=== PATIENT | female | born 1970 | race African-American/Black ===

== ENCOUNTER → 2018-11-24 | Outpatient (CLI) | payer OTHER ==
[~2018-11-24] MED LIST: ADVAIRDISKUS; ALBUTEROL2.5 MG/31 IH; ARTHROTEC EC 51 EACH PO; AZITHROMYCIN 2250 MG PO; CARISOPRODOL 3350 MG PO; DARVOCET-N 1001 EACH PO; FLEXERIL PO; GLUCOPHAGE500 MG PO; GLUCOSAMINE HC500 MG PO; HUMALOG100 UNIT/1; HUMULIN N100 UNIT/1; HYDROXYZINE HCL25 M1 GT; MEDROLDOSEPACK PO; METFORMIN HCL500 MG PO; NABUMETONE 500500 M1 PO; NORCO 7.5-3251 EACH PO; PERCOCET 5-3251 EACH PO; PREDNISONE 2.52.5 M1 PO; PREDNISONE50 MG PO; PRENATAL; PROVENTIL; TESSALON PERLE100 MG PO; ZANAFLEX4 M1 PO; ZANAFLEX4 MG PO; ZANTAC 150MG T150 M1 PO; ZPAK PO
== END ==
LOC: RAD 09:18
DX: J40 Bronchitis, not specified as acute or chronic (principal)

== ENCOUNTER → 2019-06-08 | Outpatient (CLI) | payer OTHER | LOC: ULTRA 10:23 | DX: M79.89 Other specified soft tissue disorders (principal); M79.604 Pain in right leg ==

== ENCOUNTER → 2020-02-29 | Outpatient (CLI) | payer OTHER | LOC: SJCVCIMAG 09:09 | PROVIDERS: ATTEND Internal Medicine | DX: R00.0 Tachycardia, unspecified (principal); E66.01 Morbid (severe) obesity due to excess calories ==

== ENCOUNTER 2021-02-06 23:16 | Emergency (ER) | payer OTHER ==
[~2021-02-06] VITALS: Ht 172.7 cm; Wt 148.3 kg
[2021-02-06] MEDS ORDERED: GLYBURIDE 5 MG T5 M1 PO (23:35)
[2021-02-06] MEDS ORDERED: VICTOZA0.6 MG/0.1 SUBQ (23:36)
[2021-02-06] MEDS ORDERED: VITAMIN D21250 MCG PO (23:36)
[2021-02-07] MEDS ORDERED: VENTOLIN HFA INH8 GM INH (01:02)
[2021-02-07] MEDS ORDERED: FLOVENT HFA 4444 MCG INH (01:02)
[2021-02-07] MEDS ORDERED: PREDNISONE 20 M20 MG PO (01:02)
[2021-02-07 01:36] VITALS: BP 142/67
== END 2021-02-07 01:38 | disposition home or self-care (01) ==
LOC: ER 23:16
DX: U07.1 COVID-19 (principal); J45.909 Unspecified asthma, uncomplicated; Z88.5 Allergy status to narcotic agent; Z88.1 Allergy status to other antibiotic agents; Z88.0 Allergy status to penicillin; Z91.040 Latex allergy status; Z88.6 Allergy status to analgesic agent; Z79.899 Other long term (current) drug therapy; Z94.9 Transplanted organ and tissue status, unspecified; Z90.710 Acquired absence of both cervix and uterus

== ENCOUNTER 2021-02-09 15:02 | Inpatient (IN) | payer OTHER ==
[~2021-02-09] VITALS: Ht 175.3 cm; Wt 143.0 kg
[~2021-02-09 15:02] MED LIST changes: +FLOVENT HFA 4444 MCG INH; +GLYBURIDE 5 MG T5 M1 PO; +PREDNISONE 20 M20 MG PO; +VENTOLIN HFA INH8 GM INH; +VICTOZA0.6 MG/0.1 SUBQ; +VITAMIN D21250 MCG PO
[2021-02-09 15:15] VITALS: BP 114/84
[2021-02-09 17:18] LABS: BE(vivo) -3.7 mmol/L (-2 to +3); PCO2 VENOUS 25.3 mmHg (41.0-51.0); PO2 VENOUS 86.4 mmHg (35.0-45.0)
--- NOTE | 2021-02-09 17:28 | NUR ---
CONTACTED LAB TO ASSIST WITH OBTAINING BLOOD.
[2021-02-09 17:36] LABS: CALCIUM 8.7 mg/dL (8.5-10.1); CREATININE 0.9 mg/dL (0.6-1.0); POTASSIUM 4.5 mmol/L (3.5-5.1)
[2021-02-09 18:42] LABS: ABSOLUTE NEUTROPHILS 7.1 thou/uL (1.4-8.2); BASOPHILS 0.3 % (0.0-2.0); HEMATOCRIT 40.7 % (37.0-47.0); HEMOGLOBIN 13.6 gm/dL (12.0-15.0); LYMPHOCYTES 7.3 % (24.0-44.0); MCH 28.3 pg (26.0-34.0); MCHC 33.4 g/dL (28.0-37.0); MCV 84.6 fL (80.0-100.0); MONOCYTES 2.1 % (1.0-8.0); PLATELET COUNT 270 thou/uL (150-400); POLYS 90.3 % (36.0-66.0); RDW 14.4 % (10.5-14.5); WBC 7.8 thou/uL (4.0-11.0)
--- NOTE | 2021-02-09 18:47 | NUR ---
DISCUSSED RISKS OF DVT AND INFECTION WITH THE PATIENT WELL BENIFITS OF MIDLINE PLACEMENT. SHE VERBALIZED UNDERSTANDING AND QUESTIONS ANSWERED. A #4F POWER INJECTABLE MIDLINE WAS PLACED AFTER 2 ATTEMPTS AT PERIPHERAL ACCESS AND LAB DRAWS WERE UNSUCCESSFUL. THE LEFT BASILIC WAS WIDLEY PATENT. THE 20CM LINE ADVANCED WITHOUT DIFFICULTY. THE LINE WAS SECURED AND RELEASED FOR USE
[2021-02-09] MEDS ORDERED: TYLENOL PO (19:23)
[2021-02-09 20:04] VITALS: BP 140/74
[2021-02-10 04:08] VITALS: BP 108/62
[2021-02-10 06:27] LABS: HEMATOCRIT 39.2 % (37.0-47.0); HEMOGLOBIN 13.1 gm/dL (12.0-15.0); MCH 28.3 pg (26.0-34.0); MCHC 33.3 g/dL (28.0-37.0); RBC 4.62 mil/uL (4.20-5.00); RDW 14.6 % (10.5-14.5); WBC 5.6 thou/uL (4.0-11.0)
[2021-02-10 06:48] LABS: ALBUMIN 2.8 g/dL (3.4-5.0); ANION GAP 10 mmol/L (7-16); BUN 11 mg/dL (7-18); CALCIUM 8.2 mg/dL (8.5-10.1); CHLORIDE 104 mmol/L (98-107); CO2 25 mmol/L (21-32); CREATININE 0.9 mg/dL (0.6-1.0); DIRECT BILIRUBIN < 0.1 mg/dL (<0.1-0.2); GLUCOSE 165 mg/dL (74-106); PHOSPHORUS 3.3 mg/dL (2.6-4.7); POTASSIUM 4.5 mmol/L (3.5-5.1); SGOT 21 U/L (15-37); SGPT 24 U/L (14-59); SODIUM 139 mmol/L (136-145); TOTAL BILIRUBIN 0.3 mg/dL (0.2-1.0); TOTAL PROTEIN 6.9 g/dL (6.4-8.2)
[2021-02-10 08:36] VITALS: BP 139/84
--- NOTE | 2021-02-10 11:18 | NUR ---
Nutrition: RD received consult stating diabetes. Pt admitted with SOA, recent COVID dx. PMH: PNA, bronchitis, asthma, DM2. BMI 65. Bedscale weight 446#, pt reported weight 327#. Follow trends, however pt with class 3 extreme obesity. Spoke with pt over phone and she did report a 15# weight loss since having cholecystectomy. Appetite is good. C/O no taste but able to smell. Assisted with lunch order and explained alternative menu ordering for future. BG 140, A1C pending. Pt reports pork allergy and is listed in diet order. No education needs/desires at present. Place as low nutrition risk.
--- NOTE | 2021-02-10 12:53 | NUR ---
INITIAL ASSESSMENT: SW reviewed chart and spoke with nursing and attending physician. Pt was admitted from home due to COVID. Pt placed in Enhanced Isolation. Pt had positive test on 02/07/2021. Pt is afebrile and on 2L of O2. Pt is on IV abx, IV steroids and COVID meds. Pt with hx DM and asthma. Pt has not received a COVID vaccine. SW spoke with pt via phone. Introduced role of SW. Pt is alert/orientated x 4. Pt reports she lives at home with her 15 yr old son. Pt's son is in quarantine and is being taken care of by his older siblings. Prior to admission, pt was independent with ADLs. Pt has become weak since being diagnosed with COVID and has been unable to ambulate without having to stop and rest. Pt works at a local nursing facility. Pt has an inhaler to use as needed. No hx of services. Pt's PCP is Dr. Jackson Carney at [facility]. Pt used to see Dr. Anabel Glover and Dr. Varghese Harman at [facility]. However they do not accept pt's current insurance. PT/OT ordered to evaluate pt for discharge needs. Plan is for pt to discharge home when medically stable. SW is following to assist as needed with discharge planning.
--- NOTE | 2021-02-10 15:08 | EKG ---
[place] [address] [facility] [place] [address] ELECTROCARDIOGRAM REPORT Name: ALAN TRIMBLE Room #: 350-P ADM IN M.R.#: [id number] Admission: 02/09/21 Attend Phys: Chary Bray Discharge: Date of : 74 Report #: [id number] [facility] ED Test Date: 2021-02-09 Test Time: 16:42:13 Pat Name: ALAN TRIMBLE Department: Room: 350 Gender: F Cross Roller: RYNE : 1970 Requested By: Mercedes Duke Order Number: [id number] MD: Ian Bishop Measurements Intervals [place] Rate: 85 P: 47 IN: 130 QRS: -17 QRSD: 86 T: 30 QT: 342 QTc: 407 Interpretive Statements Sinus rhythm Borderline left axis deviation Compared to ECG 08/05/2013 03:02:57 No significant changes Electronically Signed On 02-10-2021 15:08:14 CDT by Ian Bishop [email or web address] <ELECTRONICALLY SIGNED> By: Ian Bishop MD, [facility] 02/10/21 1508 1642 1642 Ian Bishop MD, FACC /EPI
[2021-02-10 15:11] VITALS: BP 120/67
--- NOTE | 2021-02-10 16:07 | NUR ---
RN ASSUMED PT'S CARE AT 0700AM, PT IS A&OX4, PT IS ON O2 2L/MIN/NC, PT'S VS AND O2SAT ARE STABLE, BUT PT STILL HAS COUGHING AND SOB WITH ACTIVITIES, PT IS CONTINUING IV ABX AND TREAT COVID MEDICATIONS, PT GETS UP TO BSC WITHOUT ASSIST, PT DENIES PAIN AT THIS TIME.
[2021-02-10 19:30] VITALS: BP 160/91
[2021-02-11 00:06] LABS: GLYCOHEMOGLOBIN (HGB A1C) 6.5 % (4.8-5.6)
[2021-02-11 03:44] VITALS: BP 133/87
[2021-02-11 04:21] LABS: ABSOLUTE NEUTROPHILS 3.5 thou/uL (1.4-8.2); BASOPHILS 0.3 % (0.0-2.0); HEMATOCRIT 39.6 % (37.0-47.0); HEMOGLOBIN 13.3 gm/dL (12.0-15.0); LYMPHOCYTES 27.8 % (24.0-44.0); MCH 28.2 pg (26.0-34.0); MCHC 33.5 g/dL (28.0-37.0); PLATELET COUNT 281 thou/uL (150-400); POLYS 66.9 % (36.0-66.0); RBC 4.72 mil/uL (4.20-5.00); RDW 14.6 % (10.5-14.5); WBC 5.2 thou/uL (4.0-11.0)
[2021-02-11 05:09] LABS: INR 0.9; PROTIME 9.9 Seconds (10.5-12.1)
[2021-02-11 05:41] LABS: ALBUMIN 2.8 g/dL (3.4-5.0); CALCIUM 8.5 mg/dL (8.5-10.1); CREATININE 0.9 mg/dL (0.6-1.0); POTASSIUM 4.2 mmol/L (3.5-5.1); TOTAL BILIRUBIN 0.2 mg/dL (0.2-1.0); TOTAL PROTEIN 7.1 g/dL (6.4-8.2)
[2021-02-11 05:44] LABS: DIRECT BILIRUBIN < 0.1 mg/dL (<0.1-0.2); PHOSPHORUS 3.1 mg/dL (2.5-4.9)
--- NOTE | 2021-02-11 06:45 | NUR ---
VSS OVERNIGHT. MIDLINE IN PLACE AND DRAWS FOR LABS. PT HAVING COMPLAINTS OF UPPER GASTRIC PAIN. GOT ORDER FOR GAS X AND AWAITING FOR THE PHARMACY TO VERIFY. COLLECTED MRSA SWAB AND URINE SAMPLE FOR ID. SPUTUM STILL NEEDS TO BE COLLECTED. 02 SATURATION IN 90'S WITH 2L NASAL CANNULA.
[2021-02-11 07:44] VITALS: BP 110/71
[2021-02-11] MEDS ORDERED: ASPIRIN EC325 M1 PO (10:55)
[2021-02-11] MEDS ORDERED: CEFUROXIME500 MG PO (10:55)
--- NOTE | 2021-02-11 12:52 | NUR ---
SHREYAS reviewed chart and spoke with nursing and attending physician. Pt remains in Enhanced Isolation due to COVID. Pt febrile earlier today. Pt is on 2L of O2. Pt had rest/exercise oximetry completed earlier today. Pt does requiring 2L of O2 with activity. Pt remains on IV abx and IV steorids. Pt is still receiving COVID meds. Discharge summary completed by attending physician. SHREYAS spoke with pt via phone to discuss discharge plan. Pt states that she was told she would remain in the hospital for the duration of COVID meds. IV lasix ordered today. SW discussed possible need for home O2. Pt verbalized understanding. SW provided options for DME companies. No preference voiced. SHREYAS confirmed pt's home address and phone number. SHREYAS faxed home O2 referral to [facility] and notified [facility] liaison of new referral. Pt will have a repeat rest/exercise oximetry prior to discharge. SHREYAS is following to assist as needed with discharge planning.
[2021-02-11 14:14] LABS: CREATININE 1.1 mg/dL (0.6-1.0)
[2021-02-11 15:40] VITALS: BP 134/78
--- NOTE | 2021-02-11 16:24 | NUR ---
RN ASSUMED PT'S CARE AT 0700AM, PT IS A&OX4, PT IS ON O2 2L/MIN/NC, PT'S VS ARE STABLE BY THIS TIME, BUT PT STILL HAS SOB WITH ACTIVITIES, PT IS CONTINUING IV ABX AND TREAT COVID MEDICATIONS, PT GETS UP TO BSC AND CHAIR WITHOUT ASSIST, PT DENIES PAIN AND N/V BY THIS TIME.
[2021-02-11 20:13] VITALS: BP 152/93
[2021-02-11 21:18] LABS: ABSOLUTE NEUTROPHILS 4.4 thou/uL (1.4-8.2); BASOPHILS 0.5 % (0.0-2.0); HEMATOCRIT 44.2 % (37.0-47.0); HEMOGLOBIN 14.3 gm/dL (12.0-15.0); LYMPHOCYTES 19.8 % (24.0-44.0); MCH 27.3 pg (26.0-34.0); MCHC 32.4 g/dL (28.0-37.0); MCV 84.1 fL (80.0-100.0); MONOCYTES 5.8 % (1.0-8.0); PLATELET COUNT 323 thou/uL (150-400); POLYS 73.9 % (36.0-66.0); RBC 5.26 mil/uL (4.20-5.00); RDW 14.6 % (10.5-14.5)
[2021-02-12 03:37] VITALS: BP 95/63
--- NOTE | 2021-02-12 05:15 | NUR ---
PT MAKING POOR PROGRESS TOWARDS GOAL. ON O2 AT 2L PER NC. UPON INTIAL ASSESSMENT PT REPORTED THAT SHE HAD A COUGHING EPISODE AND THAT SHE FELT SHORT OF BREATH IMMEDIATELY FOLLOWING IT. PT 02 SAT FELL TO DASIA 80'S BUT RECOVERED TO 93% AFTER A FEW MINUTES.
[2021-02-12 08:46] LABS: ALBUMIN 2.8 g/dL (3.4-5.0); ANION GAP 7 mmol/L (7-16); BUN 16 mg/dL (7-18); CHLORIDE 103 mmol/L (98-107); CO2 29 mmol/L (21-32); DIRECT BILIRUBIN < 0.1 mg/dL (<0.1-0.2); GLUCOSE 110 mg/dL (74-106); PHOSPHORUS 3.9 mg/dL (2.6-4.7); POTASSIUM 3.9 mmol/L (3.5-5.1); SGOT 26 U/L (15-37); SGPT 31 U/L (14-59); SODIUM 139 mmol/L (136-145); TOTAL BILIRUBIN 0.2 mg/dL (0.2-1.0); TOTAL PROTEIN 7.3 g/dL (6.4-8.2)
[2021-02-12 09:09] LABS: HIV ANTIBODY Non Reactive (Non Reactive)
--- NOTE | 2021-02-12 12:19 | NUR ---
SW reviewed chart and spoke with nursing and attending physician. Pt remains in Enhanced Isolation due to COVID. Pt is afebrile and requiring 5L of O2. Pt is on IV abx, IV steroids and IV lasix. Remdesivir has been started. PT/OT is following pt for recommendations for discharge needs. Pt will need a repeat rest/exercise oximetry prior to discharge to determine home O2 needs. [facility] has delivered a portable O2 tank to the hospital if needed. SHREYAS is following to assist as needed with discharge planning.
[2021-02-12 16:40] VITALS: BP 137/86
[2021-02-12 20:19] VITALS: BP 119/69
[2021-02-13 03:58] VITALS: BP 100/66
--- NOTE | 2021-02-13 06:03 | NUR ---
PT ON O2 AT 4L PER NC OVERNIGHT. PT REPORTEDLY ON 5L THROUGHOUT THE DAY TIME. PT STATED SHE WAS NEEDING 5L OF OXYGEN. O2 SAT WITH INITIAL VITAL SIGNS WAS 94%. O2 KEPT AT 4L. PT REPORTING FREQUENT COUGH AND TROUBLE BREATHING SURROUNDING THOSE COUGHING EVENTS. SUPPORT GIVEN, ENCOURAGED TO TAKE SLOW DEEP BREATH THROUGH THE NOSE DURING THOSE TIMES. ENCOURAGED TO CALL IF THOSE WITH ANY STRUGGLE TO RECOVER FROM THOSE SOA/COUGHING EVENTS.
[2021-02-13 07:20] VITALS: BP 113/73
[2021-02-13 07:46] LABS: ABSOLUTE NEUTROPHILS 2.7 thou/uL (1.4-8.2); BASOPHILS 1.1 % (0.0-2.0); EOSINOPHILS 0.1 % (0.0-3.0); HEMATOCRIT 44.6 % (37.0-47.0); HEMOGLOBIN 14.7 gm/dL (12.0-15.0); LYMPHOCYTES 41.7 % (24.0-44.0); MCH 27.6 pg (26.0-34.0); MCV 83.7 fL (80.0-100.0); MONOCYTES 6.4 % (1.0-8.0); PLATELET COUNT 310 thou/uL (150-400); POLYS 50.7 % (36.0-66.0); RBC 5.33 mil/uL (4.20-5.00); RDW 14.3 % (10.5-14.5); WBC 5.3 thou/uL (4.0-11.0)
[2021-02-13 08:02] LABS: ANION GAP 12 mmol/L (7-16); BUN 17 mg/dL (7-18); CALCIUM 9.2 mg/dL (8.5-10.1); CHLORIDE 103 mmol/L (98-107); CO2 28 mmol/L (21-32); DIRECT BILIRUBIN < 0.1 mg/dL (<0.1-0.2); GLUCOSE 131 mg/dL (74-106); PHOSPHORUS 4.3 mg/dL (2.6-4.7); POTASSIUM 3.9 mmol/L (3.5-5.1); SGOT 30 U/L (15-37); SGPT 40 U/L (14-59); SODIUM 143 mmol/L (136-145); TOTAL BILIRUBIN 0.3 mg/dL (0.2-1.0); TOTAL PROTEIN 7.9 g/dL (6.4-8.2)
[2021-02-13 13:52] LABS: T-SPOT.TB Negative
--- NOTE | 2021-02-13 14:13 | NUR ---
SHREYAS reviewed chart and spoke with nursing and attending physician. Pt remains in Enhanced Isolation due to COVID. Pt is afebrile and requiring 5L of O2. Pt is on IV steroids, IV lasix and Remdesivir. SHREYAS spoke with pt via phone. Pt states she feels very fatigued after working with therapy and it tooks a while for her to catch her breath. SHREYAS discussed possible need for home O2 when ready for discharge. Pt verbalized understanding. Do is following to provide home O2. SHREYAS is following to assist as needed with discharge planning.
[2021-02-13 15:57] VITALS: BP 133/72
--- NOTE | 2021-02-13 15:58 | NUR ---
RN ASSUMED PT'S CARE AT 0700AM, PT IS A&OX4, PT IS ON O2 4-5L/MIN/NC, PT'S O2SAT STAYS AT 92-95%, PT STILL HAS COUGHING AND SOB WITH ACTIVITIES, PT IS CONTINUING PO ABX AND TREAT COVID MEDICATIONS, PT GETS UP CHAIR WITHOUT ASSISIT , PT DENIES PAIN AND N/V BY THIS TIME.
[2021-02-13 19:15] VITALS: BP 153/96
[2021-02-14 04:30] VITALS: BP 151/90
--- NOTE | 2021-02-14 04:48 | NUR ---
Patient making some progress towards outcome goals. Oxygen saturation 99-100% on 5L at rest. Desaturates to low 90's with activity and coughing spells. PRN cough medication given with some relief. Rib cage pain from coughing treated with Tylenol with some relief. Up to BSC independently, gait steady.
[2021-02-14 05:51] LABS: ALBUMIN 2.9 g/dL (3.4-5.0); CREATININE 0.9 mg/dL (0.6-1.0); PHOSPHORUS 3.7 mg/dL (2.5-4.9); POTASSIUM 3.9 mmol/L (3.5-5.1)
[2021-02-14 07:11] VITALS: BP 114/74
--- NOTE | 2021-02-14 09:07 | NUR ---
Nutrition followup: pt seen for early followup. Continues on [facility], COVID + with O2 need. Continues to eat well, 80-100% of meals. BG 118-343. A1C 6.5 Glyburide, SSI, steroid. Carb controlled diet. BM 02/13. Last bedscale weight error. Pt reports UBW 327#. Pt voiced no nutrition needs at present. Low risk.
--- NOTE | 2021-02-14 13:28 | NUR ---
SHREYAS reviewed chart and spoke with nursing and attending physician. Pt remains in Enhanced Isolation due to COVID. Pt is on 4L of O2 and remasin on IV steroids and IV abx. Pt has completed courses of COVID meds. Pt may be ready to discharge home over the holiday weekend. Rest/exercise oximetry completed earlier today. Pt required 4L with activity. Pt will need a repeat rest/exercise oximetry ordered prior to discharge. Test results and script for O2 will need to be faxed to [facility] when available. SHREYAS updated [facility] liaison. Portable O2 tank has been delivered to the hospital for pt to take him, if needed. SHREYAS spoke with pt via phone to discuss discharge plan. Pt is aware of possible discharge if her O2 requirements go down. SHREYAS explained process for setting up home O2. Pt verbalized understanding. Contact info for Do has been placed in pt's discharge summary. SHREYAS is following and is available to assist as needed with discharge planning. DO--
[2021-02-14 15:15] VITALS: BP 133/80
[2021-02-14 19:45] VITALS: BP 148/95
--- NOTE | 2021-02-14 20:02 | NUR ---
RN ASSUMED PT'S CARE AT 0700AM-1900PM, PT IS A&OX4, PT IS O2 3-4L/MIN/NC, PT IS CONTINUING TREAT COVID MEDICATIONS, PT STILL HAS COUGHING AND SOB WITH ACTIVITIES,PT'S VS ARE STABLE AT DAY SHIFT.
[2021-02-15 04:00] VITALS: BP 108/59
[2021-02-15 06:47] LABS: ALBUMIN 2.8 g/dL (3.4-5.0); ANION GAP 10 mmol/L (7-16); BUN 19 mg/dL (7-18); CALCIUM 9.7 mg/dL (8.5-10.1); CHLORIDE 102 mmol/L (98-107); CO2 28 mmol/L (21-32); DIRECT BILIRUBIN < 0.1 mg/dL (<0.1-0.2); GLUCOSE 118 mg/dL (74-106); PHOSPHORUS 4.2 mg/dL (2.6-4.7); POTASSIUM 3.8 mmol/L (3.5-5.1); SGOT 19 U/L (15-37); SGPT 34 U/L (14-59); SODIUM 140 mmol/L (136-145); TOTAL BILIRUBIN 0.3 mg/dL (0.2-1.0); TOTAL PROTEIN 7.2 g/dL (6.4-8.2)
[2021-02-15 07:11] VITALS: BP 117/68
--- NOTE | 2021-02-15 07:30 | NUR ---
PT MAKING SLOW PROGRESS TOWARDS GOALS. LUNGS DIMISHED THROUGHOUT. O2 AT 3L PER NC THROUGHOUT THE DAY TIME AND OVERNIGHT.
[2021-02-15 15:08] VITALS: BP 129/77
[2021-02-15 19:45] VITALS: BP 146/69
[2021-02-16 04:44] VITALS: BP 102/58
[2021-02-16 05:51] LABS: ANION GAP 10 mmol/L (7-16); BUN 21 mg/dL (7-18); CALCIUM 9.9 mg/dL (8.5-10.1); CHLORIDE 99 mmol/L (98-107); CO2 29 mmol/L (21-32); CREATININE 0.9 mg/dL (0.6-1.0); DIRECT BILIRUBIN < 0.1 mg/dL (<0.1-0.2); GLUCOSE 184 mg/dL (74-106); PHOSPHORUS 4.4 mg/dL (2.6-4.7); POTASSIUM 3.6 mmol/L (3.5-5.1); SGOT 15 U/L (15-37); SGPT 32 U/L (14-59); SODIUM 138 mmol/L (136-145); TOTAL BILIRUBIN 0.3 mg/dL (0.2-1.0); TOTAL PROTEIN 7.7 g/dL (6.4-8.2)
[2021-02-16 07:00] VITALS: BP 119/75
[2021-02-16 15:44] VITALS: BP 110/74
[2021-02-16 19:30] VITALS: BP 131/96
[2021-02-17 03:30] VITALS: BP 107/61
--- NOTE | 2021-02-17 05:41 | NUR ---
Patient making slow progress towards outcome goals. Continues to require 4L oxygen/NC. Still with coughing spells. Up to BSC without difficulty. Gait steady. Up adlib without difficulty. Vital signs and rhythm stable. Diuresing from Lasix.
[2021-02-17 06:49] LABS: ABSOLUTE NEUTROPHILS 11.6 thou/uL (1.4-8.2); BASOPHILS 0.2 % (0.0-2.0); HEMOGLOBIN 14.1 gm/dL (12.0-15.0); LYMPHOCYTES 11.2 % (24.0-44.0); MCH 28.3 pg (26.0-34.0); MCHC 33.6 g/dL (28.0-37.0); MCV 84.3 fL (80.0-100.0); MONOCYTES 3.2 % (1.0-8.0); PLATELET COUNT 417 thou/uL (150-400); POLYS 85.4 % (36.0-66.0); RBC 4.98 mil/uL (4.20-5.00); RDW 13.9 % (10.5-14.5); WBC 13.5 thou/uL (4.0-11.0)
[2021-02-17 07:00] LABS: ANION GAP 10 mmol/L (7-16); BUN 24 mg/dL (7-18); CALCIUM 9.6 mg/dL (8.5-10.1); CHLORIDE 97 mmol/L (98-107); CO2 28 mmol/L (21-32); CREATININE 1.1 mg/dL (0.6-1.0); DIRECT BILIRUBIN < 0.1 mg/dL (<0.1-0.2); GLUCOSE 280 mg/dL (74-106); PHOSPHORUS 4.1 mg/dL (2.5-4.9); POTASSIUM 3.8 mmol/L (3.5-5.1); SGOT 12 U/L (15-37); SGPT 29 U/L (30-65); SODIUM 135 mmol/L (136-145); TOTAL BILIRUBIN 0.4 mg/dL (0.2-1.0); TOTAL PROTEIN 7.8 g/dL (6.4-8.2)
[2021-02-17 07:01] LABS: D-DIMER 0.22 ug/mLFEU (0.19-0.50); INR 0.96; PROTIME 10.5 Seconds (10.5-12.1)
[2021-02-17 07:13] VITALS: BP 121/70
[2021-02-17 15:06] VITALS: BP 116/80
--- NOTE | 2021-02-17 18:02 | NUR ---
ASSUMED PATIENT CARE AT 0700. A/O X4. TITRATED TO 2L/NC. SOB WITH EXERTION. SLOWLY TOWARDS POC GOALS.
[2021-02-17 20:23] VITALS: BP 131/72
[2021-02-18 03:40] VITALS: BP 118/73
--- NOTE | 2021-02-18 04:01 | NUR ---
denies chest pain tonight. resting quietly. continues on a fluids restriction/ she took benedryl at bedtime and has been resting since.
[2021-02-18 06:27] LABS: ANION GAP 10 mmol/L (7-16); BUN 27 mg/dL (7-18); CALCIUM 9.5 mg/dL (8.5-10.1); CHLORIDE 97 mmol/L (98-107); CO2 27 mmol/L (21-32); CREATININE 1.1 mg/dL (0.6-1.0); DIRECT BILIRUBIN < 0.1 mg/dL (<0.1-0.2); GLUCOSE 321 mg/dL (74-106); PHOSPHORUS 3.5 mg/dL (2.5-4.9); POTASSIUM 4.2 mmol/L (3.5-5.1); SGOT 11 U/L (15-37); SGPT 26 U/L (30-65); SODIUM 134 mmol/L (136-145); TOTAL BILIRUBIN 0.4 mg/dL (0.2-1.0); TOTAL PROTEIN 7.5 g/dL (6.4-8.2)
[2021-02-18 07:21] VITALS: BP 119/79
[2021-02-18 16:10] VITALS: BP 134/73
--- NOTE | 2021-02-18 16:28 | NUR ---
SHREYAS reviewed chart and spoke with nursing and attending physician. Pt remains in Enhanced Isolation due to COVID. Pt is afebrile and on 2L of O2. Pt is on IV steroids and IV lasix. Chest CT ordered today to r/o PE. SHREYAS spoke with pt via phone to provide update. Pt is aware that she will most likely need home O2 when discharged. Will need a rest/exercise oximetry completed to determine home O2 needs. SHREYAS updated [facility] liaison. Portable O2 tank has been delivered to the hospital. SHREYAS is following to assist as needed with discharge planning.
--- NOTE | 2021-02-18 19:44 | NUR ---
ASSUMED PATIENT CARE AT 0700. A/O X4. UP AD EMILY. SOB WITH EXERTION. SLOWLY TOWARDS POC GOALS.
[2021-02-18 20:10] VITALS: BP 152/98
[2021-02-19 03:53] VITALS: BP 124/80
--- NOTE | 2021-02-19 04:38 | NUR ---
PT MAKING SLOW PROGRESS TOWARDS GOALS. ON O2 AT 2L PER NC OVERNIGHT. LUNGS DIMINISHED THROUGHOUT.
[2021-02-19 05:44] LABS: ALBUMIN 2.9 g/dL (3.4-5.0); CALCIUM 9.2 mg/dL (8.5-10.1); PHOSPHORUS 3.4 mg/dL (2.5-4.9); POTASSIUM 4.1 mmol/L (3.5-5.1)
[2021-02-19 07:22] VITALS: BP 136/84
--- NOTE | 2021-02-19 14:35 | NUR ---
SHREYAS reviewed chart and spoke with nursing and attending physician. Pt remains in Enhanced Isolation due to COVID. Pt is afebrile and on 2L of O2. Pt is on IV steroids and IV lasix. SHREYAS spoke with pt via phone to provide update. Pt states that she was told by attending physician that discharge home is anticipated for Wednesday. Pt reports that she will need transportation home when discharged. Her two sons are at home with COVID and in isolation. Pt is aware that she will most likely need home O2 when discharged. Will need a rest/exercise oximetry completed to determine home O2 needs. SHREYAS updated [facility] liaison. Portable O2 tank has been delivered to the hospital. SW is following to assist as needed with discharge planning.
[2021-02-19 16:00] VITALS: BP 145/68
--- NOTE | 2021-02-19 16:20 | NUR ---
PT IS ALERT AND ORIENTED X4. PT STATED SHE IS DOING BETTER TODAY AND WANTS TO TRY TO KEEP THE COMMODE ON THE OTHER SIDE OF THE BED WHEN SHE GETS UP IN THE CHAIR TO BUILD STRENGTH FOR WHEN SHE GOES HOME. PT HAD BEEN IN SR AND TOLERATING 2L NC. NO COMPLAINTS OF PAIN AT THIS TIME.
[2021-02-19 19:33] VITALS: BP 149/71
[2021-02-20 04:40] VITALS: BP 120/65
--- NOTE | 2021-02-20 05:40 | NUR ---
PT MAKING SLOW PROGRESS TOWARDS GOALS. ON O2 AT 2L PER NC. LUNGS DIMINISHED THROUGHOUT.
[2021-02-20 08:07] VITALS: BP 131/84
--- NOTE | 2021-02-20 13:49 | NUR ---
SHREYAS reviewed chart and spoke with nursing and attending physician. Pt remains in Enhanced Isolation due to COVID. Pt is afebrile and currently on room air. Pt is on IV lasix and IV steroids. Rest/exercise oximetry completed earlier today. At this time, pt does not require O2. Discharge home is anticipated for tomorrow. SHREYAS updated [facility] liaison. Portable O2 tank at the hospital if needed. SHREYAS placed call to pt's room. No answer. Plan is for pt to discharge home when medically stable. Pt will need transportation home. SHREYAS is following to assist as needed with discharge planning.
[2021-02-20 14:59] VITALS: BP 147/78
[2021-02-20 19:15] VITALS: BP 123/67
--- NOTE | 2021-02-20 23:07 | NUR ---
PT ALERT AND ORIENTED X4. VSS AFEBRILE. SAT 94% ON RA. BS CLEAR BUT DIMINISHED BILATERALLY. MEDICATED FOR COUGH AND SORETHROAT PAIN. EYE DROPS GIVEN. BENADRYL GIVEN PER PT REQUEST FOR SLEEP. BED DOWN. CALL LIGHT IN REACH. NO S/S DISTRESS PRESENTLY.
[2021-02-21 03:41] VITALS: BP 118/67
--- NOTE | 2021-02-21 06:07 | NUR ---
PT ALERT AND ORIENTED X4. VSS AFEBRILE THIS AM. SAT 99% ON 2LNC. NOTIFIED NURSE PRIVATE DUTY PT C/O CHEST DISCOMFORT WHICH PT FELT IT WAS MORE LIKE GAS PAIN. SHE DESCRIBED IT STARTING IN THE STOMACH AND LOWER CHEST AND RADIATING TO BACK. SIMETHICONE GIVEN. PT NOW STATES THE GAS PAIN HAS GONE AWAY. NO S/S DISTRESS PRESENTLY. PT POSSIBLY GOING HOME TODAY.
[2021-02-21 07:37] VITALS: BP 146/90
[2021-02-21] MEDS ORDERED: FREESTYLE LIBR1 EAC2 MISCELL (10:47)
[2021-02-21] MEDS ORDERED: GLYBURIDE 5 MG T5 M1 PO (10:47)
[2021-02-21] MEDS ORDERED: ELIQUIS5 MG PO (10:47)
[2021-02-21] MEDS ORDERED: PREDNISONE 20 M20 MG PO (10:47)
[2021-02-21] MEDS ORDERED: HYDROCODONE-CH115 ML PO (10:47)
[2021-02-21 11:51] VITALS: BP 146/90
--- NOTE | 2021-02-21 12:03 | NUR ---
DISCHARGE NOTE: SHREYAS reviewed chart and spoke with nursing and attending physician. Pt is medically stable for discharge home today. Pt will need home O2. Attending physician states he would like for pt to have HH. SHREYAS spoke with pt via phone to provide update and discuss discharge plan. Pt is aware and agreeable with plan. Pt states she would like HH. SHREYAS confirmed pt's home address and phone number. SHREYAS found in-network HH Providers on website for Home State. SHREYAS called [facility], [facility], [facility], [facility], [facility], [facility] , [facility], [facility] , and [facility]. All unable to accept pt's insurance or accept a COVID pt. SHREYAS contacted Colin with [employer] . Face sheet faxed to [employer] for review. SHREYAS contacted [facility] liaison, who will review referral for possible heaven RN visits. SHREYAS faxed HH referral to [facility] liaison. SHREYAS contacted attending physician for script for O2 and HH orders. Pt will need transportation home when discharged. SHREYAS discussed with Director of Case Mgmt. Contact info for Do placed in pt's discharge summary. Pt states she will call Do to have equipment delivered this afternoon. Her son is at home and able to accept the delivery. SHREYAS is following to assist as needed to finalize discharge.
[2021-02-21] MEDS ORDERED: OXYGEN MISCELL (13:30)
[2021-02-21] MEDS ORDERED: DIFLUCAN100 MG PO (14:02)
--- NOTE | 2021-02-21 15:56 | NUR ---
RN ASSUMED PT'S CARE AT 0700AM, PT IS A&OX4, PT'S SOB AND CUGHING HAVE IMPROVED, PT 'S WEAKNESS HAS IMPROVED TOO, PT CAN WALK IN HER ROOM WITHOUT ASSIST, PT'S VS ARE STABLE , RN RECEIVED ORDER TO DC PT TO HOME, PT UNDERSTANDS DC TEACHING WELL, SW SETS UP TRANSPORTATION TO [facility] PT TO HOME ABOUT 1700PM,
--- NOTE | 2021-02-21 18:52 | NUR ---
TRANSPORATION PERSON CONTRACT AGENT TO HOME WITH O2 AT 1730PM, PT HAD ALL HER 1700PM EDICATIONS. PT DENIED PAIN AND SOB BY THIS TIME.
== END 2021-02-21 18:18 | disposition home health service (06) | DRG 177 ==
LOC: ER 15:02 → 3W 18:38 → EROBS 18:38 → 3W 19:50
PROVIDERS: Emergency Medicine; Nurse Practitioner Family; Specialist; ADMIT Hospitalist; ATTEND Hospitalist
PROC: XW033E5 Introduction of Remdesivir Anti-infective into Peripheral Vein, Percutaneous Approach, New Technology Group 5 (ICD-10-PCS; principal; 2021-02-09)
PROC: 05HY33Z Insertion of Infusion Device into Upper Vein, Percutaneous Approach (ICD-10-PCS; 2021-02-09)
DX: U07.1 COVID-19 (principal); J96.01 Acute respiratory failure with hypoxia; J12.82 Pneumonia due to coronavirus disease 2019; Z68.44 Body mass index [BMI] 60.0-69.9, adult; J45.909 Unspecified asthma, uncomplicated; E66.01 Morbid (severe) obesity due to excess calories; E11.9 Type 2 diabetes mellitus without complications; R19.7 Diarrhea, unspecified; Z90.49 Acquired absence of other specified parts of digestive tract; Z90.710 Acquired absence of both cervix and uterus; Z87.01 Personal history of pneumonia (recurrent); Z88.0 Allergy status to penicillin; Z86.718 Personal history of other venous thrombosis and embolism; Z79.899 Other long term (current) drug therapy; Z79.84 Long term (current) use of oral hypoglycemic drugs; Z88.5 Allergy status to narcotic agent; Z88.6 Allergy status to analgesic agent; Z88.1 Allergy status to other antibiotic agents; Z91.040 Latex allergy status
CPT/HCPCS: 10879; 27000